=== PATIENT | female | born 1980 | race Caucasian/White ===

== ENCOUNTER 2023-05-05 21:35 | Emergency (ER) | payer BC ==
[~2023-05-05] VITALS: Ht 177.8 cm; Wt 86.2 kg
[2023-05-05 21:58] VITALS: TEMP 98.1
[2023-05-05] MEDS ORDERED: ONDANSETRON 4 MG TAB.RAPDIS ONE (22:28)
[2023-05-05] MEDS: ONDANSETRON 4 MG TAB.RAPDIS SL ONE (22:29)
[2023-05-05 22:41] VITALS: BP 138/89; O2SAT 100
== END 2023-05-05 22:41 | disposition home or self-care (01) ==
LOC: ER 21:44
DX: S00.03XA Contusion of scalp, initial encounter (principal); R55 Syncope and collapse; W18.39XA Other fall on same level, initial encounter; Y93.89 Activity, other specified; Y92.89 Other specified places as the place of occurrence of the external cause; Y99.8 Other external cause status
CPT/HCPCS: 99284; 70450; Q0162